=== PATIENT | female | born 1995 | race Caucasian/White ===

== ENCOUNTER 2018-09-26 10:39 | Emergency (ER) | payer BC | END 2018-09-26 12:09 | disposition home or self-care (01) | LOC: FTE 10:39 | DX: J30.2 Other seasonal allergic rhinitis (principal) | CPT/HCPCS: 99282 ==

== ENCOUNTER 2019-01-25 11:32 | Emergency (ER) | payer BC | END 2019-01-25 12:46 | disposition home or self-care (01) | LOC: FTE 12:46 | DX: R59.0 Localized enlarged lymph nodes (principal); F17.210 Nicotine dependence, cigarettes, uncomplicated | CPT/HCPCS: 99282 ==